=== PATIENT | female | born 1995 | race Caucasian/White ===

== ENCOUNTER → 2016-10-16 | Outpatient (CLI) | payer BC ==
[2016-10-16 18:42] LABS: Basophils % (A) 0 %; CH 28.9; CHCM 32.9; Eosinophils # (A) 0.1 k/uL (0-0.7); Eosinophils % (A) 2 %; HCT 43.7 % (34.0-46.0); HDW 2.57; HGB 14.2 gm/dL (11.4-16.0); Luc # (Auto) 0.18; Luc % (Auto) 3; Lymphocytes # (A) 2.4 k/uL (1.0-4.8); Lymphocytes % (A) 33 %; MCH 28.6 pg (25.0-35.0); MCHC 32.4 g/dL (31.0-37.0); MCV 88.2 fL (80.0-100.0); Mean Platelet Volume 7.3; Monocytes # (A) 0.4 k/uL (0-1.0); Monocytes % (A) 6 %; Neutrophils # (A) 4.1 k/uL (1.3-7.7); Neutrophils % (A) 57 %; RBC 4.95 m/uL (3.80-5.40); RDW 12.5 % (11.5-15.5); WBC 7.3 k/uL (3.8-10.6); WBC (Perox) 7.68
[2016-10-16 19:04] LABS: ALT 78 U/L (9-52); AST 40 U/L (14-36); Alkaline Phosphatase 83 U/L (38-126); Anion Gap 10 mmol/L; Blood Urea Nitrogen 11 mg/dL (7-17); Calcium 9.6 mg/dL (8.4-10.2); Carbon Dioxide 26 mmol/L (22-30); Chloride 106 mmol/L (98-107); Cholesterol 189 mg/dL (<200); Glucose 94 mg/dL (74-99); HDL Cholesterol 39 mg/dL (40-60); Non-African American GFR(MDRD) >60 (>60 ml/min/1.73 sqM); Potassium 4.4 mmol/L (3.5-5.1); Sodium 142 mmol/L (137-145); Total Bilirubin 0.8 mg/dL (0.2-1.3); Total Protein 7.6 g/dL (6.3-8.2); Triglycerides 149 mg/dL (<150)
== END | disposition home or self-care (01) ==
LOC: MMGSC 11:15
PROVIDERS: ATTEND Family Medicine
DX: Z00.00 Encounter for general adult medical examination without abnormal findings (principal)
CPT/HCPCS: 36415; 80053; 80061; 84439; 84443; 85025

== ENCOUNTER → 2016-10-17 | Outpatient (CLI) | payer BC ==
[2016-10-17 18:22] LABS: ALT 81 U/L (9-52); AST 38 U/L (14-36); Iron 71 ug/dL (37-170)
[2016-10-17 18:32] LABS: % Iron Saturation 23.4 % (20-50); Total Iron Binding Capacity 303 ug/dL (265-497)
[2016-10-17 19:01] LABS: Hepatitis B Surface Ag Index 0.07
[2016-10-17 19:07] LABS: Hepatitis B Core IgM Index 0.05
[2016-10-17 19:19] LABS: Hepatitis C Virus IgG Index 0.01
[2016-10-17 19:24] LABS: Hepatitis C Virus IgG Ab Negative (Negative)
== END | disposition home or self-care (01) ==
LOC: MMGSC 14:37
PROVIDERS: ATTEND Family Medicine
DX: R79.89 Other specified abnormal findings of blood chemistry (principal)
CPT/HCPCS: 36415; 80074; 82103; 82390; 82728; 83516; 83540; 83550; 84450; 84460

== ENCOUNTER → 2016-11-05 | Outpatient (CLI) | payer BC ==
--- NOTE | 2016-11-05 09:19 | US ---
EXAMINATION TYPE: US abdomen complete DATE OF EXAM: 11/05/2016 8:27 AM COMPARISON: NONE CLINICAL HISTORY: R94.5 ELEVATED LFTS. Pt went for physical and blood work abnormal EXAM MEASUREMENTS: Liver Length: 12.3 cm Gallbladder Wall: 0.1m CBD: 0.3 cm Spleen: 9.3 cm Right Kidney: 10.4 x 4.5 x 5.3 cm Left Kidney: 10.0 x 4.4 x 5.6 cm TECHNOLOGIST IMPRESSION: large body habitus overlying bowel gas limits scan Pancreas: large body habitus overlying bowel gas limits scan Liver: As described below Gallbladder: wnl Evidence for sonographic Henley's sign: No CBD: wnl Spleen: wnl Right Kidney: wnl Left Kidney: wnl Upper IVC: wnl Abd Aorta: wnl Exam is somewhat limited by patient body habitus. Liver echotexture is coarse, decreased echogenicity adjacent to the gallbladder may be related to focal fatty sparing. Aorta is poorly visualized. Pancr eas is not well seen. IMPRESSION: There may be fatty infiltration of the liver versus hepatocellular disease. Exam is limit ed by patient body habitus.
== END ==
LOC: RADUSWWP 07:48
PROVIDERS: ATTEND Family Medicine
DX: R79.89 Other specified abnormal findings of blood chemistry (principal)
CPT/HCPCS: 76700